=== PATIENT | female | born 1955 | race Two or more races ===

== ENCOUNTER 2016-11-02 10:40 | Emergency (ER) | payer SELFPAY ==
[~2016-11-02] VITALS: Ht 157.5 cm; Wt 58.1 kg
[2016-11-02] MEDS ORDERED: predniSONE 20 MG TABLET PO ONE (11:00)
[2016-11-02] MEDS ORDERED: predniSONE 20 MG TABLET ONE (11:00)
[2016-11-02] MEDS ORDERED: ALBUTEROL FS 2.5 MG/3 ML VIAL.NEB NEB ONE ×2 (11:00→12:00)
[2016-11-02] MEDS ORDERED: IPRATROPIUM NEB FS 0.5 MG/2.5 ML AMPUL.NEB NEB ONE (11:00)
[2016-11-02] MEDS ORDERED: ALBUTEROL FS 2.5 MG/3 ML VIAL.NEB ONE ×2 (11:04→12:13)
[2016-11-02] MEDS ORDERED: IPRATROPIUM NEB FS 0.5 MG/2.5 ML AMPUL.NEB ONE (11:04)
[2016-11-02 12:40] VITALS: BP 120/70
== END 2016-11-02 12:41 | disposition home or self-care (01) ==
LOC: ER 10:41
DX: J45.901 Unspecified asthma with (acute) exacerbation (principal); J01.90 Acute sinusitis, unspecified; J20.9 Acute bronchitis, unspecified; Z88.8 Allergy status to other drugs, medicaments and biological substances; Z98.890 Other specified postprocedural states
CPT/HCPCS: 71010; 94640 ×3; 99285; A4606; J7512; Z7610